=== PATIENT | female | born 1995 | race African-American/Black ===

== ENCOUNTER 2018-12-03 04:53 | Inpatient (IN) ==
[2018-12-03] MEDS ORDERED: MEPERIDINE 50 MG/1 ML VIAL IV PRN (05:15)
[2018-12-03] MEDS ORDERED: BUTORPHANOL 2 MG/ML VIAL IV PRN (05:15)
[2018-12-03] MEDS ORDERED: ONDANSETRON 4 MG/2 ML VIAL IV PRN ×2 (05:15→13:54)
[2018-12-03] MEDS ORDERED: OXYTOCIN/LR 20 UNIT/1,000 ML BAG IV SCH (05:30)
[2018-12-03] MEDS: LACTATED RINGERS 1,000 ML IV SCH ×2 (05:33→09:31)
[2018-12-03 05:37] LABS: Basophils % 0.3 % (0.0-0.8); Eosinophils # 0.1 10*3/uL (0.0-0.87); Eosinophils % 1.4 % (0.00-10.9); Hematocrit 33.5 VOL% (35.7-47.0); Hemoglobin 10.5 GM/DL (12.0-16.0); Immature Granulocytes % 0.4 %; Immature Granulocytes Absolute 0.03 #; Lymphocytes # 3.1 10*3/uL (1.4-4.0); Lymphocytes % 39.7 % (21.3-54.2); Mean Corpuscular HGB Conc 31.3 GM/DL (32-36); Mean Corpuscular Volume 90.3 FL (87-102); Mean Platelet Volume 9.4 FL (9.6-12.0); Neutrophils % 51.2 % (38.7-73.9); Platelet Count 270 T/CUMM (130-400); Red Blood Count 3.71 MC/CUMM (3.8-5.5); Red Cell Distribution Width 14.5 % (9.3-17.3); White Blood Count 7.9 T/CUMM (4-12)
[2018-12-03] MEDS ORDERED: AMPICILLIN INJ 2,000 MG in SODIUM CHLORIDE 0.9% 100 ML IV ONE (05:52)
[2018-12-03] MEDS ORDERED: CITRIC ACID/SODIUM CITRATE 30 ML UDCUP PO ONE (08:36)
[2018-12-03] MEDS ORDERED: hydrOXYzine HCL 25 MG/1 ML VIAL IM PRN (08:36)
[2018-12-03] MEDS ORDERED: NALOXONE 0.4 MG/ML VIAL IV PRN (08:36)
[2018-12-03] MEDS ORDERED: PROMETHAZINE 25 MG/1 ML VIAL IM ONE (08:36)
[2018-12-03] MEDS ORDERED: ONDANSETRON 4 MG/2 ML VIAL IV ONE (08:36)
[2018-12-03] MEDS ORDERED: ePHEDrine 50 MG/ML AMP IV PRN (08:36)
[2018-12-03] MEDS ORDERED: FAMOTIDINE 20 MG/2 ML VIAL IV ONE (08:36)
[2018-12-03] MEDS ORDERED: diphenhydrAMINE 50 MG/1 ML VIAL IV PRN ×2 (08:36)
[2018-12-03 08:56] LABS: Rapid Plasma Reagin Confirm REACTIVE (Nonreactive)
[2018-12-03] MEDS ORDERED: fentaNYL 2 MCG/ROPIV 0.2% EPID 100 ML EPIDURAL SCH (09:00)
[2018-12-03] MEDS ORDERED: AMPICILLIN INJ 2,000 MG in SODIUM CHLORIDE 0.9% 100 ML IV SCH (12:30)
[2018-12-03] MEDS ORDERED: BUTORPHANOL 1 MG/ML VIAL ONE (13:19)
[2018-12-03] MEDS ORDERED: METHYLERGONOVINE 0.2 MG/1 ML AMP ONE (13:19)
[2018-12-03] MEDS ORDERED: miSOPROStol 200 MCG TABLET ONE ×2 (13:19→13:20)
[2018-12-03] MEDS ORDERED: CARBOPROST TROMETHAMINE 250 MCG/ML AMP IM ONE (13:19)
[2018-12-03] MEDS ORDERED: BISACODYL 10 MG SUPP RECTAL PRN (13:54)
[2018-12-03] MEDS ORDERED: WITCH HAZEL PADS 100/JAR TOP PRN (13:54)
[2018-12-03] MEDS ORDERED: HYDROCORTISONE 2.5% RECTAL CREAM 30 GM TUBE TOP PRN (13:54)
[2018-12-03] MEDS ORDERED: OXYTOCIN/LR 20 UNIT/1,000 ML BAG IV ONE (13:54)
[2018-12-03] MEDS ORDERED: BENZOCAINE 20%/MENTHOL 0.5% SPRAY 56 GM CAN TOP PRN (13:54)
[2018-12-03] MEDS ORDERED: LANOLIN 50% CREAM 0.3 OZ TUBE TOP PRN (13:54)
[2018-12-03] MEDS ORDERED: ACETAMINOPHEN 325 MG TABLET PO PRN (13:54)
[2018-12-03] MEDS ORDERED: oxyCODONE/ACETAMINOPHEN 5-325 MG TABLET PO PRN (13:54)
[2018-12-03] MEDS ORDERED: DIPH/TET/ACEL PERT BOOSTER VACCINE 0.5 ML VIAL IM ONE (14:00)
[2018-12-03] MEDS ORDERED: RHO(D) IMMUNE GLOBULIN 300 MCG SYRINGE IM ONE (14:00)
[2018-12-03] MEDS ORDERED: MEASLES/MUMPS/RUBELLA VACCINE 0.5 ML VIAL SUBCUT ONE (14:00)
[2018-12-03] MEDS: IBUPROFEN 800 MG TABLET PO PRN (19:25)
[2018-12-03] MEDS: DOCUSATE SODIUM 100 MG CAPSULE PO SCH (20:35)
[2018-12-04] MEDS: IBUPROFEN 800 MG TABLET PO PRN ×2 (00:54→23:28)
[2018-12-04 05:31] LABS: Basophils % 0.3 % (0.0-0.8); Eosinophils # 0.2 10*3/uL (0.0-0.87); Eosinophils % 2.2 % (0.00-10.9); Hematocrit 31.3 VOL% (35.7-47.0); Hemoglobin 9.7 GM/DL (12.0-16.0); Immature Granulocytes % 0.4 %; Immature Granulocytes Absolute 0.03 #; Lymphocytes # 2.7 10*3/uL (1.4-4.0); Lymphocytes % 36.4 % (21.3-54.2); Mean Corpuscular Volume 90.7 FL (87-102); Monocytes % 7.6 % (1.7-12.7); Neutrophils % 53.1 % (38.7-73.9); Platelet Count 226 T/CUMM (130-400); Red Blood Count 3.45 MC/CUMM (3.8-5.5); Red Cell Distribution Width 14.5 % (9.3-17.3); White Blood Count 7.3 T/CUMM (4-12)
[2018-12-04] MEDS: oxyCODONE/ACETAMINOPHEN 5-325 MG TABLET PO PRN ×3 (05:38→23:28)
[2018-12-04] MEDS: DOCUSATE SODIUM 100 MG CAPSULE PO SCH ×2 (09:46→20:40)
[2018-12-05] MEDS: DOCUSATE SODIUM 100 MG CAPSULE PO SCH (10:04)
[2018-12-05] MEDS: oxyCODONE/ACETAMINOPHEN 5-325 MG TABLET PO PRN (13:18)
[2018-12-05 15:46] VITALS: BP 134/72
== END 2018-12-05 17:05 | disposition home or self-care (01) | DRG 560 ==
LOC: N.LDOUT 04:53 → N.LD 04:55 → N.OB 17:05
PROVIDERS: ADMIT Obstetrics & Gynecology; ATTEND Obstetrics & Gynecology